=== PATIENT | female | born 1935 | race Caucasian/White ===

== ENCOUNTER 2017-02-01 07:22 | Day surgery (SDC) | payer OTHER ==
[2017-01-30 18:45] VITALS: BMI 25.8
[2017-02-01] MEDS ORDERED: PROPOFOL 20 ML ONE (07:25)
[2017-02-01] MEDS ORDERED: LIDOCAINE HCL/PF 2% SDV 5ML VIAL ONE (07:25)
[2017-02-01 08:55] VITALS: TEMP 98.2
[2017-02-01 10:06] VITALS: BP 126/56; PULSE 66
== END 2017-02-01 09:35 | disposition home or self-care (01) ==
LOC: FASU-ENDO 07:22
PROVIDERS: ATTEND Internal Medicine Gastroenterology
PROC: 0DJD8ZZ Inspection of Lower Intestinal Tract, Via Natural or Artificial Opening Endoscopic (ICD-10-PCS; principal; 2017-02-01 08:30)
DX: Z86.010 Personal history of colon polyps (principal); Z83.71 Family history of colonic polyps; K57.30 Diverticulosis of large intestine without perforation or abscess without bleeding; K64.8 Other hemorrhoids